=== PATIENT | female | born 1990 | race Caucasian/White ===

== ENCOUNTER 2022-05-13 19:21 | Emergency (ER) | payer SELFPAY ==
[2022-05-13] MEDS ORDERED: traMADol 50 MG Tab PO ONE (19:22)
== END 2022-05-13 20:15 | disposition home or self-care (01) ==
LOC: FB.ED 19:21
DX: S69.92XA Unspecified injury of left wrist, hand and finger(s), initial encounter (principal); Z79.899 Other long term (current) drug therapy; Z88.0 Allergy status to penicillin; W19.XXXA Unspecified fall, initial encounter; Y99.0 Civilian activity done for income or pay
CPT/HCPCS: 73130-LT; 99283; A9270-GY